=== PATIENT | male | born 1970 | race Hispanic/Latino ===

== ENCOUNTER → 2025-02-11 | Day surgery (SDC) | payer OTHER ==
[2025-02-05 13:19] LABS: EST GLOMERULAR FILTRATION RATE 36.0 ML/MIN (>=60)
[~2025-02-11] MED LIST: ASPIRIN81 MG PO; FENOFIBRATE145 MG PO; FENTANYL CITRATE/PF 100MCG/2 ML INJ ONE; GABAPENTIN300 MG PO; GLIPIZIDE ER5 MG PO; JARDIANCE25 MG PO; LIDOCAINE HCL 2% LOCAL INJ 5 ML SDV VIAL INJ ONE; LIPITOR10 MG PO; LOSARTAN POTAS100 MG PO; MIDAZOLAM HCL 2 MG/2 ML VIAL ONE; PROPOFOL IV EMULSION 10 MG/ML 20 ML VIAL ONE; TETRACAINE HCL 0.5% OPTH SOLN 4 ML BTL ONE
[2025-02-11] MEDS: CYCLOPENTOLATE HCL 2% OPTH SOLN 2 ML BTL OP ONE (06:58)
[2025-02-11] MEDS: GATIFLOXACIN(OPTH) 5 ML LIQD ONE (06:59)
[2025-02-11] MEDS: PHENYLEPHRINE HCL 2 ML DROPS ONE (06:59)
[2025-02-11] MEDS: LACTATED RINGER'S 1,000 ML ONE (07:00)
[2025-02-11 09:17] VITALS: TEMP 97.8
[2025-02-11 09:45] VITALS: BP 140/60; PULSE 68; RESP 16; O2SAT 97
== END | disposition home or self-care (01) ==
LOC: OR 06:07
PROVIDERS: ATTEND Ophthalmology
DX: H25.12 Age-related nuclear cataract, left eye (principal); E11.9 Type 2 diabetes mellitus without complications; I10 Essential (primary) hypertension; I69.831 Monoplegia of upper limb following other cerebrovascular disease affecting right dominant side; Z01.810 Encounter for preprocedural cardiovascular examination; Z01.812 Encounter for preprocedural laboratory examination; Z79.82 Long term (current) use of aspirin; Z79.84 Long term (current) use of oral hypoglycemic drugs; Z79.899 Other long term (current) drug therapy
CPT/HCPCS: 36415 ×2; 66984; 80048; 82948; 84132; 85014; 85018; 93005; J2003; J2250; J2704; J3010; J7121; V2632

== ENCOUNTER → 2025-03-12 | Day surgery (SDC) | payer OTHER ==
[2025-03-10 11:14] LABS: EST GLOMERULAR FILTRATION RATE 49.0 ML/MIN (>=60)
[~2025-03-12] MED LIST changes: +DEXAMETHASONE SOD PHOS INJ 4 MG/ML SDV ONE; -FENTANYL CITRATE/PF 100MCG/2 ML INJ ONE; +FLOMAX0.4 MG PO; +HYDRALAZINE HCL 20 MG/ML VIAL ONE; -MIDAZOLAM HCL 2 MG/2 ML VIAL ONE; +ONDANSETRON HCL INJ 2MG/ML 2ML 2 MG/ML VIAL ONE; +PHENYLEPHRINE HCL 1% 10 MG/ML VIAL ONE; +SODIUM CHLORIDE 0.9% 100 ML ONE
[2025-03-12] MEDS: LACTATED RINGER'S 1,000 ML ONE (06:04)
[2025-03-12] MEDS: PHENYLEPHRINE HCL 2 ML DROPS ONE (06:05)
[2025-03-12] MEDS: GATIFLOXACIN(OPTH) 5 ML LIQD ONE (06:06)
[2025-03-12] MEDS: CYCLOPENTOLATE HCL 2% OPTH SOLN 2 ML BTL OP ONE (06:06)
[2025-03-12 08:06] VITALS: TEMP 98.2
[2025-03-12 08:30] VITALS: BP 128/74; PULSE 64; RESP 15; O2SAT 97
== END | disposition home or self-care (01) ==
LOC: OR 05:27
PROVIDERS: ATTEND Ophthalmology
DX: H25.11 Age-related nuclear cataract, right eye (principal); I10 Essential (primary) hypertension; Z96.1 Presence of intraocular lens; Z98.42 Cataract extraction status, left eye; E11.9 Type 2 diabetes mellitus without complications; Z79.84 Long term (current) use of oral hypoglycemic drugs; Z01.812 Encounter for preprocedural laboratory examination; Z86.73 Personal history of transient ischemic attack (TIA), and cerebral infarction without residual deficits; Z79.899 Other long term (current) drug therapy; Z79.82 Long term (current) use of aspirin
CPT/HCPCS: 36415 ×2; 66984; 80048; 82948; 85014; 85018; J0360; J1100; J2003; J2371; J2405; J2704; J7050; J7121; V2632